=== PATIENT | female | born 1975 | race African-American/Black ===

== ENCOUNTER 2020-07-07 00:56 | Emergency (ER) | payer MEDICARE ==
[~2020-07-07] VITALS: Ht 152.4 cm; Wt 140.0 kg
[~2020-07-07 00:56] MED LIST: AUGMENTIN 875-11 TAB PO; GLUCOPHAGE500 MG PO; LISINOPRIL-HCT1 EAC4 PO; MEDROL DOSE PACK4 MG PO; MUCINEX DM ER1 EAC1 PO; TESSALON PERLE100 MG PO
[2020-07-07 01:06] VITALS: Ht 152.4 cm; Wt 140.0 kg
[2020-07-07 02:02] VITALS: BP 122/73
== END 2020-07-07 02:03 | disposition home or self-care (01) ==
LOC: D.ER 00:56
DX: R51 Headache (principal); I10 Essential (primary) hypertension; E11.9 Type 2 diabetes mellitus without complications